=== PATIENT | female | born 1965 | race Caucasian/White ===

== ENCOUNTER 2024-07-27 06:19 | Day surgery (SDC) | payer OTHER, SELFPAY | END 2024-07-27 14:00 | disposition home or self-care (01) | LOC: GI 06:19 | PROVIDERS: ATTENDING PHYSICIAN Specialist | DX: R12 Heartburn (principal); K22.89 Other specified disease of esophagus; K31.7 Polyp of stomach and duodenum; K22.10 Ulcer of esophagus without bleeding | CPT/HCPCS: 43239; 88305 ==